=== PATIENT | male | born 1995 | race Two or more races ===

== ENCOUNTER 2019-04-03 16:12 | Emergency (ER) | payer OTHER ==
[~2019-04-03] VITALS: Ht 165.1 cm; Wt 86.2 kg
[2019-04-03 16:23] VITALS: BP 127/41
== END 2019-04-03 18:00 | disposition home or self-care (01) ==
LOC: ER 16:12
DX: G44.209 Tension-type headache, unspecified, not intractable (principal); F41.1 Generalized anxiety disorder
CPT/HCPCS: 70450